=== PATIENT | female | born 1965 | race Caucasian/White ===

== ENCOUNTER → 2022-01-15 08:09 | Outpatient (CLI) | payer OTHER, SELFPAY ==
--- NOTE | 2022-01-15 | DI.MG.S_ITS ---
BILATERAL DIGITAL SCREENING MAMMOGRAM 3D/2D WITH CAD: 01/15/2022 CLINICAL: Routine screening. Comparison is made to exam dated: 05/24/2020 mammogram - outside location. The tissue of both breasts is extremely dense, which lowers the sensitivity of mammography. Current study was also evaluated with a Computer Aided Detection (CAD) system. No significant masses, calcifications, or other findings are seen in either breast. There has been no significant interval change. IMPRESSION: NEGATIVE There is no mammographic evidence of malignancy. A 1 year screening mammogram is recommended. This exam was interpreted at Station ID: [id number]. NOTE: For mammograms, a report in lay terms will be sent to the patient. Approximately 15% of breast malignancies will not be visualized mammographically. In the management of a palpable breast mass, a negative mammogram must not discourage biopsy of a clinically suspicious lesion. Electronically Signed By: Renny marshall/deann:01/15/2022 11:22:02 letter sent: Normal Exam ACR BI-RADS Category 1: Negative 3341F
== END ==
PROVIDERS: PCP Student in an Organized Health Care Education/Training Program; Referring Provider Student in an Organized Health Care Education/Training Program; Visit Provider Student in an Organized Health Care Education/Training Program
DX: Z12.31 Encounter for screening mammogram for malignant neoplasm of breast (principal)
CPT/HCPCS: 77063; 77067

== ENCOUNTER → 2022-01-29 09:46 | Outpatient (CLI) | payer OTHER, SELFPAY ==
--- NOTE | 2022-01-29 | DI.RAD.S_ITS ---
PROCEDURE: XR CHEST 2V INDICATIONS: Palpitations TECHNIQUE: 2 views of the chest were acquired. COMPARISON: None. FINDINGS: Surgical changes and devices: None. Lungs and pleura: Lungs are clear. No pleural effusions or pneumothorax. Mediastinum: Mediastinal contours are normal. Heart size is normal. Bones and chest wall: No suspicious bony abnormalities. Soft tissues appear unremarkable. IMPRESSION: No acute process. Dictated by: Renato Balbuena M.D. on 01/29/2022 at 11:42 Approved by: Renato Balbuena M.D. on 01/29/2022 at 11:43
--- NOTE | 2022-02-20 14:19 | P.HOLT.S_ITS ---
Direct Casting Operator Report Referral & Results Date Patient Seen: 01/29/22 Requesting provider: Lorin Beckman Indication: Palpitations Duration of monitoring (days): 14 Diary information: There were 3 patient triggered events and 2 patient diary entries All 5 of these patient events were variably associated with sinus rhythm and SVT Data: Minimum heart rate identified was 40 beats per minute at 04:50 on 02/09/2022 Maximum sinus heart rate was 118 beats per minute at 20:33 on 02/09/2022 Maximum overall heart rate was 210 beats per minute at 09:50 on 02/08/2022 during a run of SVT Less than 1% of identified beats were ventricular or supraventricular ectopic in origin, which would classify them as rare. No pauses of 3 seconds or longer episodes of atrial fibrillation identified on this study There 128 runs of SVT with the fastest being a 22 minute 45 second run at a rate of 210 beats per minute. The longest run last 1 hour 1 minute at a rate of 152 beats per minute Impression: 14 day manager monitoring demonstrating runs of SVT up to just over an hour. Clinical correlation suggested
== END ==
PROVIDERS: PCP Student in an Organized Health Care Education/Training Program; Referring Provider Student in an Organized Health Care Education/Training Program; Visit Provider Student in an Organized Health Care Education/Training Program
DX: R00.2 Palpitations (principal)
CPT/HCPCS: 71046; 93246; 93248

== ENCOUNTER → 2022-07-23 11:08 | Outpatient (CLI) | payer OTHER, SELFPAY ==
[2022-07-23 13:40] LABS: COVID19 -Nasal RAPID Negative (Negative)
== END ==
PROVIDERS: Family Provider Student in an Organized Health Care Education/Training Program; PCP Student in an Organized Health Care Education/Training Program; Visit Provider Surgery
DX: Z20.822 Contact with and (suspected) exposure to COVID-19 (principal); Z01.812 Encounter for preprocedural laboratory examination
CPT/HCPCS: 87635; C9803

== ENCOUNTER 2022-07-24 11:07 | Day surgery (SDC) | payer OTHER, SELFPAY ==
[2022-07-24 11:27] VITALS: BP 125/78; PULSE 98; RESP 16; O2SAT 98; BMI 23.1
[2022-07-24] MEDS: LACTATED RINGERS 1,000 ML 200 ML IV (11:34)
[2022-07-24] MEDS: ONDANSETRON 4 MG/2 ML INJ IV (11:45)
[2022-07-24] MEDS: DEXTROSE 50 % IN WATER 25 GM/50 ML SYRINGE IV (11:51)
--- NOTE | 2022-07-24 12:09 | PM.HP.1 ---
History of Present Illness History of Present Illness Date Patient Seen: 07/24/22 Time Patient Seen: 12:09 Chief complaint: SCREENING COLONOSCOPY Narrative: The patient presents for colorectal screening. They have never had any previous examination for such. No personal or family history of colon cancer. On further history denies any recent gastrointestinal symptoms. No nausea, vomiting, abdominal pain, loss of appetite, unexplained weight loss, change in bowel habits, diarrhea, constipation, melena, hematochezia, or bright red blood per rectum. Patient History Family & Social History Social History: household members spouse Tobacco & Substance use: Smoking Status Never smoker alcohol intake frequency holiday/special occasion Substance Use Type does not use Meds Home Medications and Allergies Allergies Allergy/AdvReac Type Severity Reaction Status Date / Time No Known Drug Allergies Allergy Verified 07/24/22 11:26 Exam Vital Signs (past 8 hours): - 07/24/22 11:27 Pulse Rate 98 H Respiratory Rate 16 Blood Pressure 125/78 Pulse Oximetry 98 Oxygen Delivery Method Room Air Oxygen Delivery Method Room Air Narrative Exam Narrative: General adult woman alert oriented no acute distress Abdomen soft nontender nondistended Assessment & Plan Assessment and plan (1) Screening for colon cancer: Status: Acute Assessment & Plan narrative: The patient requires colorectal screening and colonoscopy is recommended. Technical details were discussed. Risks, benefits, alternatives explained. Risks including but not limited to myocardial infarction, aspiration, bleeding, pain, missed lesion, incomplete examination, need for further radiographic studies, colonic perforation, and need for major abdominal surgery were discussed. All questions were answered to their satisfaction, and they are in agreement with this plan. Time Spent With Patient Critical Care time: I spent a total of [] minutes of critical care time on this patient's care today; this time is exclusive of procedural time.
--- NOTE | 2022-07-24 12:10 | PM.OP.COLON ---
Operative Date/Time/Diagnoses Date of procedure: 07/24/22 Time of procedure: 12:10 Pre-op diagnosis: Screening colonoscopy Post-op diagnosis: same Procedure & Clinicians Study performed: Colonoscopy Same procedure as scheduled: Yes Indications: Screening Surgeon: Jad Ragland Procedure Notes Procedure in detail: Medications: Conscious sedation using 5mg IV midazolam and 150mcg IV of fentanyl The history and physical was performed/updated and the patient is ASA class is 1. The procedure was discussed in detail with the patient. Potential risks complications including infection, bleeding, missed diagnosis, perforation, need for surgery, and were explained. Their questions were answered and informed consent was obtained. Patient was brought to the procedure room and placed standard monitoring equipment. The patient's vital signs were monitored continuously throughout the entire procedure. Prior to starting time-out was performed. The patient was placed in the left lateral recumbent position. Procedural sedation was administered. Examination began with a thorough inspection of the perianal area there was no evidence of fissures, fistulae, external hemorrhoids or cutaneous malignancy. The colonoscopy scope was then placed into the anal canal and was advanced to the cecum, which was identified by the ileocecal valve, the appendiceal orifice and the confluence of the taenia. The scope was then slowly withdrawn examining colon thoroughly in all directions, irrigating it of any residual stool. FINDINGS 1. Normal healthy colon no masses or polyps The patient tolerated the procedure well. They will be discharged once criteria are met. The prep was of good/excellent quality. The withdrawl time was 8 minutes. The sedation time was 20 minutes. Specimen(s): none sent Complications: none Impression: Normal colonoscopy Post-procedure Recommendations: Colonoscopy in 10 years Disposition: same day surgery
[2022-07-24] MEDS: fentaNYL 100 MCG/2 ML INJ 150 MCG IV (12:21)
[2022-07-24] MEDS: MIDAZOLAM 5 MG/5 ML VIAL IV (12:21)
[2022-07-24 12:46] VITALS: BP 115/66; PULSE 77; RESP 12; TEMP 36.6; O2SAT 100
[2022-07-24 12:53] VITALS: BP 108/60; PULSE 70; RESP 11; O2SAT 100
[2022-07-24 12:56] VITALS: BP 102/57; PULSE 67; RESP 11; O2SAT 100
[2022-07-24 13:04] VITALS: BP 111/69; PULSE 73; RESP 11; O2SAT 100
== END 2022-07-24 13:08 | disposition home or self-care (01) ==
PROVIDERS: Family Provider Student in an Organized Health Care Education/Training Program; PCP Student in an Organized Health Care Education/Training Program; Referring Provider Surgery; Visit Provider Surgery
PROC: 0DJD8ZZ Inspection of Lower Intestinal Tract, Via Natural or Artificial Opening Endoscopic (ICD-10-PCS; CPT 45378; principal; 2022-07-24 12:45)
DX: Z12.11 Encounter for screening for malignant neoplasm of colon (principal)
CPT/HCPCS: 45378; 82962; 99152; J2250; J2405; J3010